=== PATIENT | male | born 1965 | race African-American/Black ===

== ENCOUNTER 2020-09-08 10:36 | Emergency (ER) | payer MEDICAID ==
[~2020-09-08] VITALS: Ht 167.6 cm; Wt 79.0 kg
[2020-09-08] MEDS ORDERED: VANCOMYCIN 1 G PREMIX 200 ML IV SCH (11:15)
[2020-09-08 11:27] LABS: BASOPHILS % 1.2 % (0.0-2.0); EOSINOPHILS % 0.8 % (0.0-5.0); LYMPHOCYTES % 30.2 % (20.0-50.0); MEAN CORPUSCULAR HEMOGLOBIN 26.9 pg (28.0-32.0); MEAN CORPUSCULAR VOLUME 82.7 fL (80.0-94.0); MEAN PLATELET VOLUME 7.9 fl (7.4-10.4); NEUTROPHILS % 61.8 % (40.0-76.0); PLATELET 239 x1000/uL (130-400); RED BLOOD CELL COUNT 4.84 mill/uL (4.7-6.1); RED CELL DISTRIBUTION WIDTH 17.2 % (11.6-14.6)
[2020-09-08 11:33] LABS: CHLORIDE 109 mEq/L (98-107)
[2020-09-08 11:34] LABS: PROTHROMBIN TIME 10.5 sec (9.6-11.0)
[2020-09-08] MEDS: AMPICILLIN SOD/SULBACTAM NA 3 G in SODIUM CHLORIDE 0.9% 100 ML IV SCH ×2 (12:35→17:57)
[2020-09-08] MEDS ORDERED: IOHEXOL-300 100 ML BOTTLE ONE (17:38)
[2020-09-08 23:21] VITALS: BP 119/75
== END 2020-09-08 23:55 | disposition short-term general hospital (02) ==
LOC: ER 10:36
DX: H44.001 Unspecified purulent endophthalmitis, right eye (principal); D33.2 Benign neoplasm of brain, unspecified; F79 Unspecified intellectual disabilities
CPT/HCPCS: 36415; 70450; 80053; 85025; 85610; 93005; 96365; 96366; 96367; 99285; J0295; J3370; J7050; Q9967